=== PATIENT | female | born 1975 | race Two or more races ===

== ENCOUNTER → 2018-08-05 | Outpatient (CLI) | payer OTHER | END | disposition home or self-care (01) | LOC: MAMO-SONO 09:15 → SONOGRAMA 09:47 | DX: N92.0 Excessive and frequent menstruation with regular cycle (principal); N84.0 Polyp of corpus uteri ==

== ENCOUNTER 2023-03-27 11:15 | Inpatient (IN) | payer OTHER ==
[~2023-03-27] VITALS: Ht 160 cm; Wt 68.0 kg
[2023-04-10] MEDS ORDERED: CEFTRIAXONE SODIUM 2,000 MG VIAL ONE (06:45)
[2023-04-10] MEDS ORDERED: METRONIDAZOLE/SODIUM CHLORIDE 500 MG/100 ML PIGGYBACK IV ONE ×2 (06:45→09:15)
[2023-04-10] MEDS ORDERED: PANTOPRAZOLE SO40 MG (07:51)
[2023-04-10] MEDS ORDERED: RAMIPRIL10 MG (07:51)
[2023-04-10] MEDS ORDERED: ROSUVASTATIN CA10 MG (07:51)
[2023-04-10] MEDS ORDERED: METOPROLOL SUCC25 MG (07:51)
[2023-04-10] MEDS ORDERED: HYDROXYCHLOROQ200 MG (07:51)
[2023-04-10] MEDS ORDERED: LIDOCAINE HCL/EPINEPHRINE 10MG/ML 1% 50ML IJ ONE ×2 (08:10→08:12)
[2023-04-10] MEDS ORDERED: POVIDONE-IODINE 118 ML BOTT TOP ONE (08:10)
[2023-04-10] MEDS ORDERED: BUPIVACAINE HCL/PF 0.5% 30ML ML ONE (08:10)
[2023-04-10] MEDS ORDERED: LIDOCAINE HCL/EPINEPHRINE 20 ML VIAL IJ ONE ×2 (08:13→09:15)
[2023-04-10] MEDS ORDERED: THROMBIN,HU/FIBRINOGEN/CALCIUM 10 ML SYRINGE TOP ONE ×2 (09:10→09:15)
[2023-04-10] MEDS ORDERED: VISTASEAL DUAL APPICATOR 1 EACH APPL TOP ONE ×2 (09:10→09:15)
[2023-04-10] MEDS ORDERED: CEFTRIAXONE SODIUM 2,000 MG VIAL IV ONE (09:15)
[2023-04-10] MEDS ORDERED: BUPIVACAINE HCL/PF 0.5% 5MG/ML VIAL IJ ONE (09:15)
[2023-04-10] MEDS ORDERED: SUGAMMADEX SODIUM 200 MG/2 ML VIAL IV ONE (09:45)
[2023-04-10] MEDS ORDERED: HEMOSTATIC MATRIX 1 KIT KIT TOP ONE (09:45)
[2023-04-10] MEDS ORDERED: CEFOXITIN SODIUM 2,000 MG VIAL IV SCH (09:46)
[2023-04-10] MEDS ORDERED: RINGERS SOLUTION,LACTATED 1,000 ML IV SCH (09:46)
[2023-04-10] MEDS ORDERED: ONDANSETRON HCL 2 MG/ML VIAL IV SCH (09:46)
[2023-04-10] MEDS ORDERED: GABAPENTIN 100 MG CAPSULE PO SCH (09:48)
[2023-04-10] MEDS ORDERED: ACETAMINOPHEN 325 MG TABLET PO SCH (09:48)
[2023-04-10 11:19] LABS: HEMATOCRIT 33.4 % (36.0-45.00); HEMOGLOBIN 10.8 g/dL (12.0-15.00); MEAN CORPUSCULAR HEMOGLOBIN 25.1 pg (27.00-32.0); MEAN CORPUSCULAR HGB CONC 32.2 g/dl (32.0-36.0); PLATELET COUNT 217 K/uL (150-450); RED BLOOD COUNT 4.28 M/uL (4.00-6.00); RED CELL DISTRIBUTION WIDTH 14.6 % (11.5-14.5)
[2023-04-10 13:52] LABS: HEMATOCRIT 32.3 % (36.0-45.00); HEMOGLOBIN 10.3 g/dL (12.0-15.00); MEAN CELL VOLUME 77.5 fL (80.00-100.00); MEAN CORPUSCULAR HEMOGLOBIN 24.6 pg (27.00-32.0); MEAN CORPUSCULAR HGB CONC 31.8 g/dl (32.0-36.0); PLATELET COUNT 232 K/uL (150-450); RED BLOOD COUNT 4.17 M/uL (4.00-6.00); RED CELL DISTRIBUTION WIDTH 14.2 % (11.5-14.5)
[2023-04-10 14:17] LABS: CALCIUM 8.3 mg/dL (8.5-10.1); CREATININE SERUM 0.52 mg/dL (0.55-1.02); GFR 126.4; POTASSIUM 3.38 mEq/L (3.5-5.1)
[2023-04-10] MEDS ORDERED: DIBUCAINE 30 GM TUBE RECTAL SCH (17:00)
[2023-04-10] MEDS ORDERED: CELECOXIB 200 MG CAPSULE PO SCH (17:00)
[2023-04-10] MEDS ORDERED: ENALAPRILAT DIHYDRATE 1.25 MG/ML VIAL IV PRN (17:45)
[2023-04-10] MEDS ORDERED: MONTELUKAST SODIUM 10 MG TABLET PO SCH (21:00)
[2023-04-10] MEDS ORDERED: METOPROLOL SUCCINATE 25 MG TAB.SR.24H PO SCH (21:00)
[2023-04-11 07:21] LABS: HEMATOCRIT 27.8 % (36.0-45.00); MEAN CELL VOLUME 77.4 fL (80.00-100.00); PLATELET COUNT 206 K/uL (150-450); RED BLOOD COUNT 3.59 M/uL (4.00-6.00); RED CELL DISTRIBUTION WIDTH 14.4 % (11.5-14.5)
[2023-04-11] MEDS ORDERED: PERCOCET 5-3251 EACH PO (07:40)
[2023-04-11 07:44] LABS: MEAN CORPUSCULAR HEMOGLOBIN 24.7 pg (27.00-32.0)
[2023-04-11 07:45] LABS: HEMOGLOBIN 8.9 g/dL (12.0-15.00)
[2023-04-11] MEDS ORDERED: RAMIPRIL 5 MG CAPSULE PO SCH (09:00)
[2023-04-11] MEDS ORDERED: PATIENTS OWN MEDICATION (MEDICAMENTO EN PISO) PO SCH (17:00)
== END 2023-04-11 10:35 | disposition home or self-care (01) | DRG 743 ==
LOC: O/R 04-10 05:48 → SURH 04-10 05:48
PROVIDERS: Internal Medicine Geriatric Medicine; Surgery; ADMIT Obstetrics & Gynecology Gynecology; ATTEND Obstetrics & Gynecology Gynecology
PROC: 0UT24ZZ Resection of Bilateral Ovaries, Percutaneous Endoscopic Approach (ICD-10-PCS; 2023-04-10)
PROC: 0DNB4ZZ Release Ileum, Percutaneous Endoscopic Approach (ICD-10-PCS; 2023-04-10)
PROC: 06BY4ZC Excision of Hemorrhoidal Plexus, Percutaneous Endoscopic Approach (ICD-10-PCS; 2023-04-10)
PROC: 0UT94ZZ Resection of Uterus, Percutaneous Endoscopic Approach (ICD-10-PCS; 2023-04-10)
PROC: 0DNP4ZZ Release Rectum, Percutaneous Endoscopic Approach (ICD-10-PCS; 2023-04-10)
PROC: 0DNN4ZZ Release Sigmoid Colon, Percutaneous Endoscopic Approach (ICD-10-PCS; 2023-04-10)
PROC: 0UN94ZZ Release Uterus, Percutaneous Endoscopic Approach (ICD-10-PCS; 2023-04-10)
PROC: 3E0T3BZ Introduction of Anesthetic Agent into Peripheral Nerves and Plexi, Percutaneous Approach (ICD-10-PCS; 2023-04-10)
PROC: 0UT94ZZ Resection of Uterus, Percutaneous Endoscopic Approach (ICD-10-PCS; principal; 2023-04-10 15:45)
PROC: 0UT74ZZ Resection of Bilateral Fallopian Tubes, Percutaneous Endoscopic Approach (ICD-10-PCS; 2023-04-10 15:45)
DX: D25.2 Subserosal leiomyoma of uterus (principal); N80.03 Adenomyosis of the uterus; N72 Inflammatory disease of cervix uteri; K64.8 Other hemorrhoids; K66.0 Peritoneal adhesions (postprocedural) (postinfection); Z20.822 Contact with and (suspected) exposure to COVID-19